=== PATIENT | female | born 1990 | race African-American/Black ===

== ENCOUNTER 2020-05-06 17:48 | Emergency (ER) | payer BC, OTHER ==
[2020-05-06 20:17] LABS: Bilirubin Negative (Negative); Blood, Urine Negative (Negative); Clarity Clear (Clear); Glucose, Urine (Dipstick) Normal (Negative); Ketone, Urine 10 mg/dL (Negative); Leukocyte Negative Leu/uL (Negative); Nitrite Negative (Negative); Protein, Urine (Dipstick) 10 mg/dL (Neg-Trace); Specific Gravity, Urine 1.029 (1.002-1.036)
[2020-05-06 20:19] LABS: Pregnancy Test - Urine (BHCG) Negative (Negative); Pregu Control Background? CLEAR/WHITE (CLR/WHITE); Pregu Control Bar Appear? YES (CONTROL BAR); Specific Gravity 1.029 (1.002-1.036)
[2020-05-06] MEDS ORDERED: Ondansetron ODT 4 MG TAB ONE (20:38)
== END 2020-05-06 20:49 | disposition home or self-care (01) ==
LOC: ERS 17:48
DX: R11.2 Nausea with vomiting, unspecified (principal)
CPT/HCPCS: 81003; 81025; 99284; Q0162